=== PATIENT | male | born 1990 | race Caucasian/White ===

== ENCOUNTER 2018-05-01 12:40 | Emergency (ER) | payer SELFPAY ==
[~2018-05-01] VITALS: Ht 167.6 cm; Wt 93.3 kg
[2018-05-01] MEDS ORDERED: KETOROLAC 60 MG/2 ML IM ONE (13:30)
[2018-05-01] MEDS ORDERED: KETOROLAC 30 MG/1 ML ONE (14:22)
[2018-05-01 15:53] VITALS: BP 116/68
== END 2018-05-01 16:24 | disposition home or self-care (01) ==
LOC: ED 16:00
DX: G44.209 Tension-type headache, unspecified, not intractable (principal); M54.12 Radiculopathy, cervical region
CPT/HCPCS: 70450; 72125; 96372; 99284; J1885

== ENCOUNTER 2018-06-05 06:55 | Emergency (ER) | payer SELFPAY ==
[~2018-06-05] VITALS: Ht 167.6 cm; Wt 100.0 kg
[2018-06-05] MEDS ORDERED: KETOROLAC 30 MG/1 ML IV ONE (07:30)
[2018-06-05] MEDS ORDERED: SODIUM CHLORIDE FLUSH 10ML SYR IVF ONE (07:30)
[2018-06-05] MEDS ORDERED: HYDROmorphone 1 MG/ML, 1ML IVPush PRN (07:30)
[2018-06-05] MEDS ORDERED: ONDANSETRON 2MG/ML, 2ML IVPush ONE (07:30)
[2018-06-05] MEDS ORDERED: ONDANSETRON 2MG/ML, 2ML ONE (07:37)
[2018-06-05] MEDS ORDERED: KETOROLAC 30 MG/1 ML ONE (07:37)
[2018-06-05] MEDS ORDERED: HYDROmorphone 2 MG/ML, 1ML ONE (07:37)
[2018-06-05 08:34] VITALS: BP 120/73
== END 2018-06-05 08:37 | disposition home or self-care (01) ==
LOC: ED 08:12
DX: M54.12 Radiculopathy, cervical region (principal); K08.89 Other specified disorders of teeth and supporting structures
CPT/HCPCS: 96374; 96375; 99284; J1170; J1885; J2405